=== PATIENT | female | born 1965 | race Caucasian/White ===

== ENCOUNTER → 2019-11-26 | Outpatient (CLI) | payer OTHER | LOC: COL.RAD 07:22 | DX: H53.9 Unspecified visual disturbance (principal) ==

== ENCOUNTER → 2022-10-26 | Outpatient (CLI) | payer OTHER | LOC: MHCPAIN 13:35 | DX: M67.814 Other specified disorders of tendon, left shoulder (principal); M25.512 Pain in left shoulder; R22.32 Localized swelling, mass and lump, left upper limb | CPT/HCPCS: G0463; J1885 ==